=== PATIENT | female | born 1935 | race Caucasian/White ===

== ENCOUNTER 2018-02-14 11:26 | Emergency (ER) | payer OTHER ==
[~2018-02-14] VITALS: Ht 165.1 cm; Wt 72.6 kg
[~2018-02-14 11:26] MED LIST: ATIVAN2 M1 PO; ATIVAN2 MG; AZITHROMYCIN250 MG PO; CATAFLAM50 MG PO; CIPRO500 MG; LOTREL 10-20 MG1 CAP; LOTREL 10-20 MG1 CAP PO; MEDROL4 MG PO; MICARDIS80 MG PO; ORPH100T PO; PROVENTIL3 ML/2.5 M IH; SYNTHROID125 MCG PO; SYNTHROID137 MCG PO; TESSALON PERLE100 M1 PO; TUSSAFED EX LI118 ML PO; TUSSI-PRES LIQ120 ML PO; TUSSIONEX PENNKI5 ML PO; ZYRTEC10 MG
== END 2018-02-14 14:22 | disposition home or self-care (01) ==
LOC: ER 11:26
DX: S62.102A Fracture of unspecified carpal bone, left wrist, initial encounter for closed fracture (principal); W18.39XA Other fall on same level, initial encounter; Y93.89 Activity, other specified; Y92.098 Other place in other non-institutional residence as the place of occurrence of the external cause; Y99.8 Other external cause status

== ENCOUNTER 2023-08-28 05:58 | Emergency (ER) | payer OTHER ==
[~2023-08-28] VITALS: Ht 170.2 cm; Wt 81.6 kg
[2023-08-28] MEDS ORDERED: LEVALBUTEROL HCL 0.63 MG/3 ML SOLUTION IH STA (07:00)
[2023-08-28 08:14] LABS: HEMATOCRIT 38.8 % (36.0-45.00); HEMOGLOBIN 13.7 g/dL (12.0-15.00); MEAN CELL VOLUME 89.9 fL (80.00-100.00); MEAN CORPUSCULAR HEMOGLOBIN 31.6 pg (27.00-32.0); MEAN CORPUSCULAR HGB CONC 35.2 g/dl (32.0-36.0); PLATELET COUNT 337 K/uL (150-450); RED BLOOD COUNT 4.32 M/uL (4.00-6.00); RED CELL DISTRIBUTION WIDTH 13.6 % (11.5-14.5)
[2023-08-28 09:30] LABS: ABG PH 7.443 (7.35-7.45); ABG PO2 72.7 mmHg (80-100); ABG pCO2 40.6 mmHg (35-45); BASE EXCESS 2.9 mmol/l; BICARBONATE 27.2 mmol/l (23-25); SaO2 95.2 %; Tco2 28.4 mmol/l
[2023-08-28 09:31] LABS: allen test SATISFACTORY; o2 21 %; puncture site RADIAL RIGHT
[2023-08-28] MEDS ORDERED: KETOROLAC TROMETHAMINE 30 MG VIAL IV ONE (11:00)
[2023-08-28] MEDS ORDERED: ORPHENADRINE CITRATE 30 MG/ML AMPUL IM ONE (14:00)
== END 2023-08-28 20:36 | disposition home or self-care (01) ==
LOC: ER 05:58
PROVIDERS: General Practice
DX: R06.02 Shortness of breath (principal); J45.909 Unspecified asthma, uncomplicated; E11.9 Type 2 diabetes mellitus without complications; I10 Essential (primary) hypertension; B34.9 Viral infection, unspecified; Z88.0 Allergy status to penicillin; M85.88 Other specified disorders of bone density and structure, other site
CPT/HCPCS: 71046; 72100; 94640; 96365; 96372; 99283; J1885; J2360